=== PATIENT | female | born 1970 | race Two or more races ===

== ENCOUNTER 2024-08-18 09:49 | Emergency (ER) | payer OTHER ==
[~2024-08-18] VITALS: Ht 165.1 cm; Wt 62.6 kg
[2024-08-18] MEDS ORDERED: METOCLOPRAMIDE HCL 5 MG/ML VIAL IM STA (10:32)
[2024-08-18 11:50] LABS: HEMATOCRIT 39.8 % (36.0-45.00); HEMOGLOBIN 13.4 g/dL (12.0-15.00); MEAN CELL VOLUME 90.3 fL (80.00-100.00); MEAN CORPUSCULAR HEMOGLOBIN 30.3 pg (27.00-32.0); MEAN CORPUSCULAR HGB CONC 33.6 g/dl (32.0-36.0); PLATELET COUNT 192 K/uL (150-450); RED BLOOD COUNT 4.41 M/uL (4.00-6.00); RED CELL DISTRIBUTION WIDTH 13.5 % (11.5-14.5)
[2024-08-18 11:57] LABS: ALBUMIN 3.6 gm/dL (3.4-5.0); BILIRUBIN TOTAL 0.47 mg/dL (0.3-1.2); CALCIUM 9.8 mg/dL (8.5-10.1); CREATININE SERUM 0.47 mg/dL (0.55-1.02); GFR 139.15; GLOBULINA 3.8 G/DL (2.4-3.5); POTASSIUM 4.4 mEq/L (3.5-5.1); TOTAL PROTEIN 7.4 gm/dL (6.4-8.2)
== END 2024-08-18 13:36 | disposition home or self-care (01) ==
LOC: ER 09:52
DX: R53.81 Other malaise (principal); Z20.822 Contact with and (suspected) exposure to COVID-19
CPT/HCPCS: 36415; 96372; 99282; J2765